=== PATIENT | female | born 1965 | race African-American/Black ===

== ENCOUNTER → 2017-01-24 | Outpatient (CLI) | payer MEDICARE ==
[~2017-01-24] MED LIST: ALBU8I INH; ASPI81TA11 PO; AUGM875T PO; BUTACAP2 PO; ERGO50000 PO; FERR83TA PO; IPRAAER IN; MEDR4PAK3 PO; TOPA25TA8 PO; TRAM50TA PO
[2017-01-24 08:44] LABS: BLOOD GAS BASE EXCESS -0.1 mmol/L (-2-2); BLOOD GAS CARBOXYHEMOGLOBIN 1.7 % (0-4); BLOOD GAS HCO3 24 mmol/L (22-26); BLOOD GAS O2 HGB SATURATION 93 % (90-100); BLOOD GAS OXYGEN CONTENT 14.9 Vol % (12.0-20.0); BLOOD GAS PCO2 38 mmHg (38-42); BLOOD GAS PO2 84 mmHg (61-120); BLOOD GAS TOTAL HGB 11.3 G/DL (12.0-16.0); CRITICAL VALUE NO; TEMP CORR TO 98.6
[2017-01-24 08:45] LABS: DRAW SITE RT RADIAL; FIO2 21 %; NUMBER OF ARTERIAL PUNCTURES 1; STAT NO; ULNAR PULSE PRESENT
--- NOTE | 2017-01-26 10:41 | RSPPFT ---
DATE OF PROCEDURE: 01/24/17 COMMENTS: Spirometry shows FVC is 2.3 at 69% of predicted. FEV1 of 1.5 at 62%. FEV1/FVC ratio is normal. Flow is decreased at FEF 25, FEF 50, FEF 75 and FEF 25-75. There is a good response after bronchodilator treatment. Lung volumes show residual volume is decreased. TLC is decreased. Diffusion capacity is normal. Flow volume loop indicates an obstructive pattern. IMPRESSION: 1. Mild obstructive lung disease. 2. Good response after bronchodilator treatment. 3. Additional restriction is indicated by lung volumes. 4. Diffusion capacity is normal. 5. Blood gases show normal oxygenation on room air.
== END ==
LOC: HRSP 08:03
PROVIDERS: ATTEND Specialist
DX: J44.9 Chronic obstructive pulmonary disease, unspecified (principal)
CPT/HCPCS: 36600; 82805; 94060; 94726; 94729

== ENCOUNTER 2017-05-21 21:55 | Emergency (ER) | payer MEDICARE ==
[2017-05-21 21:58] VITALS: BP 136/74; PULSE 147; RESP 24; TEMP 98.8; O2SAT 98
== END 2017-05-21 23:53 | disposition left against medical advice (07) ==
LOC: NED 21:55
DX: J45.909 Unspecified asthma, uncomplicated (principal); Z53.21 Procedure and treatment not carried out due to patient leaving prior to being seen by health care provider
CPT/HCPCS: 99281